=== PATIENT | male | born 1985 | race Caucasian/White ===

== ENCOUNTER 2017-08-14 05:27 | Observation (INO) | payer OTHER, BC ==
[2017-08-14] MEDS ORDERED: LACTATED RINGER'S 1,000 ML IV* (06:30)
[2017-08-14] MEDS ORDERED: GELATIN SIZE 100 SPONGE (06:47)
[2017-08-14] MEDS ORDERED: THROMBIN 5000 UNIT VIAL ×3 (06:47→08:57)
[2017-08-14] MEDS ORDERED: SURGIFOAM POWDER 1 GM KIT (06:47)
[2017-08-14] MEDS ORDERED: CA CHLORIDE 10% 10 ML SYRINGE (06:48)
[2017-08-14] MEDS ORDERED: BUPIVACAINE 0.25% (MPF) 30 ML INJ (06:49)
[2017-08-14] MEDS ORDERED: POLYMYXIN/BACITRACIN 1L IRRIG (06:55)
[2017-08-14] MEDS: D5W-0.45 NACL + KCL 20 MEQ 1,000 ML IV ×3 (06:58→19:54)
[2017-08-14] MEDS ORDERED: CYCLOBENZAPRINE 10 MG TAB PO (07:00)
[2017-08-14] MEDS ORDERED: AL HYDROX/MG HYDROX/SIMETH 30 ML CUP PO (07:00)
[2017-08-14] MEDS ORDERED: DIPHENHYDRAMINE 50 MG INJ IV ×2 (07:00→10:30)
[2017-08-14] MEDS ORDERED: BISACODYL 10 MG SUPP PR (07:00)
[2017-08-14] MEDS ORDERED: ACETAMINOPHEN 325 MG TAB PO (07:00)
[2017-08-14] MEDS ORDERED: HYDROCODONE/APAP (10/325) TAB PO (07:00)
[2017-08-14] MEDS ORDERED: NALOXONE (0.4 MG/ML) INJ IV (07:00)
[2017-08-14] MEDS ORDERED: HYDROmorphONE 0.5 MG/0.5 ML SYG IV (07:00)
[2017-08-14] MEDS ORDERED: ROCURONIUM 50 MG INJ ×2 (07:00→07:05)
[2017-08-14] MEDS ORDERED: CEPASTAT LOZENGE MT (07:00)
[2017-08-14] MEDS ORDERED: GLYCOPYRROLATE 0.4 MG INJ (07:05)
[2017-08-14] MEDS ORDERED: PROPOFOL 20 ML (07:05)
[2017-08-14] MEDS ORDERED: NEOSTIGMINE 3 MG/3 ML SYRINGE (07:05)
[2017-08-14] MEDS ORDERED: MIDAZOLAM 1 MG/ML 2 ML INJ (07:06)
[2017-08-14] MEDS ORDERED: CEFAZOLIN 1 GM INJ (07:06)
[2017-08-14] MEDS ORDERED: ONDANSETRON 4 MG INJ (07:07)
[2017-08-14] MEDS ORDERED: DEXAMETHASONE 4 MG/ML 1 ML INJ ×2 (07:07→08:41)
[2017-08-14] MEDS: CEFAZOLIN 1 GM/50 ML (PMX) 50 ML IVPB ×3 (07:13→23:31)
[2017-08-14] MEDS: CEFAZOLIN 2 GM/50 ML (PMX) 50 ML IVPB (07:13)
[2017-08-14] MEDS ORDERED: LIDOCAINE 1%/EPI 30 ML INJ (07:43)
[2017-08-14] MEDS: LIDOCAINE 1%/EPI 30 ML INJ INJ (08:42)
[2017-08-14] MEDS: POLYMYXIN/BACITRACIN 1L IRRIG IRR (08:42)
[2017-08-14] MEDS: GELATIN 2 SQ INCH SPONGE TOP (08:43)
[2017-08-14] MEDS: SURGIFOAM POWDER 1 GM KIT MM (08:44)
[2017-08-14] MEDS: THROMBIN 5000 UNIT VIAL TOP ×2 (08:44→08:59)
[2017-08-14] MEDS: CA CHLORIDE 10% 10 ML SYRINGE ZFS (08:45)
[2017-08-14] MEDS: DOCUSATE SODIUM 100 MG CAP PO ×2 (09:00→21:00)
[2017-08-14] MEDS ORDERED: SUGAMMADEX SODIUM 200 MG/2 ML VIAL IV (10:05)
[2017-08-14] MEDS ORDERED: METOCLOPRAMIDE 10 MG INJ (10:20)
[2017-08-14] MEDS ORDERED: TRIMETHOBENZAMIDE 100 MG/ML VIAL IM (10:30)
[2017-08-14] MEDS ORDERED: ALBUTEROL 0.083% (NEB) 2.5 MG/3 ML AMP HHN (10:30)
[2017-08-14] MEDS ORDERED: MIDAZOLAM 1 MG/ML 2 ML INJ IV (10:30)
[2017-08-14] MEDS ORDERED: OXYCODONE/ACETAMINOPHEN (5/325) TAB PO ×2 (10:30)
[2017-08-14] MEDS ORDERED: ONDANSETRON 4 MG INJ IV (10:30)
[2017-08-14] MEDS ORDERED: MEPERIDINE 25 MG INJ IV (10:30)
[2017-08-14] MEDS ORDERED: FENTAnyl 50 MCG/ML VIAL IV ×2 (10:30)
[2017-08-14] MEDS ORDERED: IPRATROPIUM (NEB) 0.5 MG/2.5 ML AMP HHN (10:30)
[2017-08-14] MEDS ORDERED: hydrALAzine 20 MG INJ IV (10:30)
[2017-08-14] MEDS ORDERED: LABETALOL HCL 20MG INJ IV (10:30)
[2017-08-14] MEDS ORDERED: EPHEDrine SULFATE 50 MG/5 ML SYG IV (10:30)
[2017-08-14] MEDS ORDERED: HYDROmorphONE (0.2 MG/ML) 10ML SYG IV ×2 (10:30)
[2017-08-14] MEDS: HYDROmorphONE 0.2 MG/ML PCA IV (10:46)
[2017-08-14] MEDS: FENTAnyl 50 MCG/ML VIAL IV (10:58)
[2017-08-14] MEDS: HYDROmorphONE (0.2 MG/ML) 10ML SYG IV (10:59)
[2017-08-14] MEDS: ONDANSETRON 4 MG INJ IV (19:55)
[2017-08-15 05:11] LABS: ADD MAN DIFF? NO
[2017-08-15 05:13] LABS: ABNORMAL IP MESSAGE 1; BASOPHILS % 0.2 % (0.0-2.0); EOSINOPHILS % 0.1 % (0.0-7.0); HEMATOCRIT 38.6 % (42.0-52.0); HEMOGLOBIN 13.2 g/dl (14.0-18.0); LYMPHOCYTES # 2.2 10^3/ul (0.8-2.9); LYMPHOCYTES % 16.8 % (15.0-51.0); MEAN CORPUSCULAR HEMOGLOBIN 29.9 pg (29.0-33.0); MEAN CORPUSCULAR HGB CONC 34.2 g/dl (32.0-37.0); MEAN CORPUSCULAR VOLUME 87.3 fl (82.0-101.0); MEAN PLATELET VOLUME 9.5 fl (7.4-10.4); MONOCYTE # 1.7 10^3/ul (0.3-0.9); MONOCYTES % 13.4 % (0.0-11.0); NEUTROPHILS % 69.3 % (39.0-77.0); PLATELET COUNT 268 10^3/UL (140-415); POSITIVE DIFF @See below; RED BLOOD COUNT 4.42 10^6/ul (4.70-6.10)
[2017-08-15 05:44] LABS: ANION GAP 15 (8-16); BLOOD UREA NITROGEN 14 mg/dl (7-20); CALCIUM 9.2 mg/dl (8.4-10.2); CARBON DIOXIDE 26 mmol/L (21-31); CHLORIDE 106 mmol/L (97-110); CREATININE 0.89 mg/dl (0.61-1.24); GLUCOSE 118 mg/dl (70-220); POTASSIUM 4.2 mmol/L (3.5-5.1); SODIUM 143 mmol/L (135-144)
[2017-08-15] MEDS: D5W-0.45 NACL + KCL 20 MEQ 1,000 ML IV (06:35)
[2017-08-15] MEDS: HYDROCODONE/APAP (10/325) TAB PO (08:56)
[2017-08-15] MEDS: FAMOTIDINE 20 MG INJ IV (08:57)
[2017-08-15] MEDS: DOCUSATE SODIUM 100 MG CAP PO (08:59)
== END 2017-08-15 12:30 | disposition home or self-care (01) ==
LOC: SDS 05:27 → REC 06:58 → MS1 11:26
PROVIDERS: Specialist
DX: M48.02 Spinal stenosis, cervical region (principal); M50.022 Cervical disc disorder at C5-C6 level with myelopathy; M50.023 Cervical disc disorder at C6-C7 level with myelopathy; M50.122 Cervical disc disorder at C5-C6 level with radiculopathy; M50.123 Cervical disc disorder at C6-C7 level with radiculopathy; G95.89 Other specified diseases of spinal cord
CPT/HCPCS: 20930; 72050; 80048; 83735; 85025; 86999; 97116; 97161; 97530